=== PATIENT | male | born 1980 ===

== ENCOUNTER → 2022-05-05 | Day surgery (SDC) | payer OTHER ==
[~2022-05-05] VITALS: Ht 177.8 cm; Wt 93.0 kg
[~2022-05-05] MED LIST: AMOXICILLIN500 MG PO; ATARAX25 MG PO; BUPROPION XL150 MG PO; PROAIR HFA8.5 GM INH; TESTOSTERO200 MG/1 M IM; VARENICLINE TART1 MG PO
== END | disposition home or self-care (01) ==
LOC: FAS 10:13
DX: K31.9 Disease of stomach and duodenum, unspecified (principal); K20.90 Esophagitis, unspecified without bleeding; J45.909 Unspecified asthma, uncomplicated; G47.30 Sleep apnea, unspecified; F17.210 Nicotine dependence, cigarettes, uncomplicated; Z91.018 Allergy to other foods; Z91.012 Allergy to eggs
CPT/HCPCS: J2704; J7120